=== PATIENT | female | born 1955 | race Caucasian/White ===

== ENCOUNTER 2018-04-05 21:15 | Observation (INO) ==
[2018-04-05 22:10] LABS: Basophils % 0.6 %; Eosinophils # 0.3 K/mcL (0.0-0.6); Eosinophils % 3.8 %; Hematocrit 40.6 % (35.3-44.9); Hemoglobin 13.3 g/dL (11.5-15.4); Immature Granulocytes % 0.4 % (0-4); Lymphocytes # 1.9 K/mcL (0.6-4.6); Lymphocytes % 26.2 %; Mean Corpuscular HGB Conc 32.8 g/dL (31.6-35.5); Mean Corpuscular Hemoglobin 29.1 pg (28.0-33.3); Mean Corpuscular Volume 88.8 fL (83.0-100.0); Mean Platelet Volume 10.1 fL (9.4-12.4); Monocytes # 0.5 K/mcL (0.0-1.3); Monocytes % 7.4 %; Neutrophils # 4.4 K/mcL (1.6-8.9); Platelet Count 249 K/mcL (140-400); Red Blood Count 4.57 M/mcL (3.82-4.97); Red Cell Distribution Width 13.1 % (11.5-14.5); Segmented Neutrophils % 61.6 %
[2018-04-05 22:30] LABS: BUN/Creatinine Ratio 24 (6-26); Blood Urea Nitrogen 24 mg/dL (8-23); Calcium 9.7 mg/dL (8.6-10.3); Carbon Dioxide 25 mEq/L (23-29); Chloride 107 mEq/L (98-107); Glucose 108 mg/dL (70-105); Magnesium 2.2 mg/dL (1.6-2.6); Osmolality,Calculated 295 (280-300); Potassium 3.9 mEq/L (3.5-5.1); Sodium 140 mEq/L (136-145); Troponin I < 0.03 ng/mL (< 0.04); eGFR For Non-African Americans 55 (> 60)
[2018-04-05 22:44] LABS: Thyroid Stimulating Hormone 4.193 mcIU/mL (0.340-5.600)
[2018-04-05] MEDS ORDERED: Isovue-370 500 ML INFUS..BTL IV ONE (22:47)
[2018-04-05] MEDS ORDERED: 0.9 % Sodium Chloride 1,000 ML IVC ONE (22:50)
--- NOTE | 2018-04-06 01:02 | Emergency Department Note ---
Disposition Clinical Impression: Lightheaded, Near syncope, Palpitations Chest pain Qualifiers: Chest pain type: unspecified Qualified Code(s): R07.9 - Chest pain, unspecified Disposition: Admitted As Inpatient Condition: Good General Adult HPI - General Chief complaint: ED Shortness of Breath/Dyspnea Stated complaint: SOB Time Seen by Provider: 04/05/18 21:25 Source: patient, EMS Limitations: no limitations Nursing Notes Reviewed: Yes Vital Signs Reviewed: Yes - History of Present Illness HPI Narrative: Patient with no significant past medical history secondary to not following up with a physician on a regular basis presents to the emergency department for evaluation of palpitations as well as shortness of breath. Patient states that she felt her heart racing proximal point hour prior to arrival. Patient states she is had a previous episode of sinus tachycardia did not find any significant underlying etiology. Patient states that she is feeling much better since her initial symptom onset. The patient states that she did not have any associated chest pain with this. She did not have any nausea or vomiting or diaphoresis. The symptoms were not exertional in nature. At this time the patient is still mildly tachycardic and will undergo further evaluation for both chest pain as well as possible PE. Pain Scale: 0 - Related Data Allergies Allergy/AdvReac Type Severity Reaction Status Date / Time No Known Allergies Allergy Verified 04/05/18 21:19 Review of Systems: CONSTITUTIONAL: No weight loss, fever, chills, weakness or fatigue. HEENT: Eyes: No visual changes. Ears, Nose, Throat: No hearing loss, difficulty talking or unable to swallow. SKIN: No rash or itching. CARDIOVASCULAR: Palpitations without chest pain RESPIRATORY: Shortness of breath GASTROINTESTINAL: No anorexia, nausea, vomiting or diarrhea. No abdominal pain or blood. GENITOURINARY: No burning on urination or hematuria. NEUROLOGICAL: No headache, dizziness, syncope, paralysis, ataxia, numbness or tingling in the extremities. No change in bowel or bladder control. MUSCULOSKELETAL: No muscle pain, back pain, joint pain or stiffness. All systems ED: reviewed and negative except as stated. Past Medical History - Past Medical History Medical history: Reports: no medical history Psychiatric history: Reports: no psych history - Social History Smoking Status: Former smoker Smokeless Tobacco Status: No Alcohol use: Reports: none Drug use: Reports: none Physical Exam General: Well appearing, nontoxic, no acute distress Head: Normocephalic Atraumatic Eyes: PERRL, EOMI ENT: Airway patent, no stridor Neck: supple, no meningismus Chest: Lungs clear to auscultation bilateral Cardiac: Regular rate and rhythm, no murmurs, rubs or gallops Abdomen: soft, nontender, nondistended; no guarding, rebound, or tenderness to percussion Musculoskeletal: Calves symmetric, nontender Skin: No rash, normal skin tone Neuro: Alert and Oriented to person, place, and time; No focal deficit - General Limitations: no limitations General appearance: alert Course - Reevaluation(s) Reevaluation #1: Patient with elevated d-dimer. CTA ordered. Reevaluation #2: CTA was negative. I did discuss the patient the negative workup and the need for further evaluation. She would like to do this as an outpatient. We did discuss her need to ambulate around the emergency department without any difficulties then. She did ambulate around the emergency department and upon reevaluation she states that she had exacerbation of chest pressure. I asked her when that started she says is been coming and going every 20 minutes. At this time she then describes how she was taken to CT. Upon moving her to the CT table she became lightheaded feeling like she might pass out. From this time forward she has been having chest pain in the middle of her chest described as a pressure that lasts for approximately 1-2 minutes and then resolves. This is happened several times during her stay in the emergency department. The fact that it was worse with exertion does make me concerned about possible underlying cardiac etiology. Patient will be admitted for further evaluation. - Consultations Consultation #1: Discussed with hospitalist. Patient accepted for admission. Vital Signs Temperature 98.8 F 04/05/18 21:20 Pulse Rate 104 04/05/18 21:20 Respiratory Rate 17 04/05/18 21:20 Blood Pressure 123/70 04/05/18 21:20 O2 Sat by Pulse Oximetry 99 04/05/18 21:20 Temperature 98.8 F 04/05/18 21:20 Pulse Rate 80 04/06/18 00:44 Respiratory Rate 17 04/06/18 00:44 Blood Pressure 112/69 04/06/18 00:44 O2 Sat by Pulse Oximetry 99 04/06/18 00:44 Oxygen Delivery Oxygen Delivery Room Air Medical Decision Making - Medical Records Medical records reviewed: Yes I reviewed the patient's medical records. - Lab Data Lab results reviewed: Yes I reviewed the patient's lab results. Result diagrams: 04/05/18 21:52 04/05/18 21:52 Lab Results 04/05/18 04/05/18 04/05/18 Range/Units 21:52 21:52 21:52 WBC 7.2 (4.3-11.1) K/mcL RBC 4.57 (3.82-4.97) M/mcL Hgb 13.3 (11.5-15.4) g/dL Hct 40.6 (35.3-44.9) % MCV 88.8 (83.0-100.0) fL MCH 29.1 (28.0-33.3) pg MCHC 32.8 (31.6-35.5) g/dL RDW 13.1 (11.5-14.5) % Plt Count 249 (140-400) K/mcL MPV 10.1 (9.4-12.4) fL Immature Gran % 0.4 (0-4) % Seg Neutrophils % 61.6 % Lymphocytes % 26.2 % Monocytes % 7.4 % Eosinophils % 3.8 % Basophils % 0.6 % Neutrophils # 4.4 (1.6-8.9) K/mcL Lymphocytes # 1.9 (0.6-4.6) K/mcL Monocytes # 0.5 (0.0-1.3) K/mcL Eosinophils # 0.3 (0.0-0.6) K/mcL Basophils # 0.0 (0.0-0.2) K/mcL D-Dimer 1701 H (0-500) ng/mLFEU Sodium 140 (136-145) mEq/L Potassium 3.9 (3.5-5.1) mEq/L Chloride 107 (98-107) mEq/L Carbon Dioxide 25 (23-29) mEq/L BUN 24 H (8-23) mg/dL Creatinine 1.01 (0.60-1.20) mg/dL Est GFR ( Amer) > 60 (> 60) Est GFR (Non-Af Amer) 55 L (> 60) BUN/Creatinine Ratio 24 (6-26) Glucose 108 H (70-105) mg/dL Calculated Osmolality 295 (280-300) Calcium 9.7 (8.6-10.3) mg/dL Magnesium 2.2 (1.6-2.6) mg/dL Troponin I < 0.03 (< 0.04) ng/mL B-Natriuretic Peptide (Less than 100) pg/mL TSH 4.193 (0.340-5.600) mcIU/mL 04/05/18 Range/Units 21:52 WBC (4.3-11.1) K/mcL RBC (3.82-4.97) M/mcL Hgb (11.5-15.4) g/dL Hct (35.3-44.9) % MCV (83.0-100.0) fL MCH (28.0-33.3) pg MCHC (31.6-35.5) g/dL RDW (11.5-14.5) % Plt Count (140-400) K/mcL MPV (9.4-12.4) fL Immature Gran % (0-4) % Seg Neutrophils % % Lymphocytes % % Monocytes % % Eosinophils % % Basophils % % Neutrophils # (1.6-8.9) K/mcL Lymphocytes # (0.6-4.6) K/mcL Monocytes # (0.0-1.3) K/mcL Eosinophils # (0.0-0.6) K/mcL Basophils # (0.0-0.2) K/mcL D-Dimer (0-500) ng/mLFEU Sodium (136-145) mEq/L Potassium (3.5-5.1) mEq/L Chloride (98-107) mEq/L Carbon Dioxide (23-29) mEq/L BUN (8-23) mg/dL Creatinine (0.60-1.20) mg/dL Est GFR ( Amer) (> 60) Est GFR (Non-Af Amer) (> 60) BUN/Creatinine Ratio (6-26) Glucose (70-105) mg/dL Calculated Osmolality (280-300) Calcium (8.6-10.3) mg/dL Magnesium (1.6-2.6) mg/dL Troponin I (< 0.04) ng/mL B-Natriuretic Peptide 23 (Less than 100) pg/mL TSH (0.340-5.600) mcIU/mL - Radiology Data Radiology results reviewed: Yes I reviewed the patient's radiology results. - EKG Data EKG #1 EKG attestation: Yes I reviewed and interpreted this EKG. EKG results narrative: EKG shows sinus tachycardia with heart rate of 100. VA interval 160. QRS 80. QTC 425. Patient has no significant ST elevations or depressions. No specific changes with comparison to previous of 06/28/2001 other than tachycardia.
[2018-04-06] MEDS ORDERED: *HR* Enoxaparin 60 MG/0.6 ML SYRINGE SQ STA (01:19)
[2018-04-06] MEDS ORDERED: Naloxone 0.4 MG/ML INJ IVP PRN (01:57)
--- NOTE | 2018-04-06 02:59 | Internal Med History&Physical ---
Date of Encounter: 04/06/18 Time of Encounter: 01:45 Internal Medicine - H&P: HPI Chief complaint: palpitations, dyspnea Admitted From: Home Plans for Post Hospital Care: Home History of present illness: Ms. Alanis is a 62 year old female without known PMH who presented to the ED with c/o palpitations and dyspnea as she was advised by an urgent care doctor she'd seen last week. Visit to urgent care last week was for pain and swelling after falling on her right knee, the doctor became concerned for DVT after learning the patient had reently been on a very long car trip and he sent her to [facility] to have bilateral LE venous doppler performed. Results of the doppler were negative for venous thrombosis of the RLE and LLE. The urgent care doctor asked that she follow up with him after getting she got the results, which she did two days ago. By that time, her right lower extremity swelling decreased with RICE. She was advised by the urgent care doctor to go to the hospital if she began to experience difficulty breathing and heart racing heart or palpitations--this is what prompted her visit. Just prior to arrival, she reports sitting in her recliner when she suddenly felt "heart fluttering" with accompanying dyspnea for a brief period before resolving on its own. Past Med Surg Social Fam HX - Past Medical History Medical history: no medical history Psychiatric history: no psych history - Social History Smoking Status: Former smoker Smokeless Tobacco Status: No Alcohol use: none Drug use: none - Family History Mother Family Member Ethnicity: Non- Living Status: Age at : 83 Internal Medicine - H&P: Meds 3 Allergy/AdvReac Type Severity Reaction Status Date / Time No Known Allergies Allergy Verified 04/05/18 21:19 All Systems PM: A 10-system review of systems was performed and is negative for pertinent findings except as documented above in the HPI. - Constitutional Constitutional: as per HPI, no chills, no fever(s) - Cardiovascular Cardiovascular ROS IM: as per HPI, dyspnea, palpitations, no chest pain, no diaphoresis, no lightheadedness, no syncope - Respiratory Respiratory: no cough, no dyspnea on exertion, no pain on inspiration - Gastrointestinal Gastrointestinal: no nausea, no vomiting - Musculoskeletal Musculoskeletal ROS IM: as per HPI - Integumentary Integumentary IM: no erythema - Neurological Neurological ROS: no dizziness, no tingling - Constitutional Vitals: Temp Pulse Resp BP Pulse Ox 98.8 F 80 24 112/74 97 04/05/18 21:20 04/06/18 02:11 04/06/18 02:11 04/06/18 02:11 04/06/18 02:11 General appearance: Present: A&O X 3, no acute distress, answers questions appropriately Exam: . - Head Head exam: Present: atraumatic, normocephalic - Eye Eye exam: Present: EOMI, normal appearance, PERRL. Absent: scleral icterus Pupils: Present: PERRL - Neck Neck exam general surgery: Present: supple, trachea midline - Respiratory Respiratory exam: Present: rales (fine and bibasilar). Absent: accessory muscle use, respiratory distress, rhonchi, wheezes, tachypnea - Cardiovascular Cardiovascular exam: Present: RRR, +S1, +S2. Absent: diastolic murmur, gallop, rubs, systolic murmur - GI/Abdominal GI/Abdominal exam: Present: normal bowel sounds, soft. Absent: distended - Extremities Exam Extremities exam: Present: normal inspection (Calf circumferences appear equal) , pedal edema (Right ankle edema, non-pitting), warm, radial pulses palpable and symmetrical. Absent: calf tenderness, cyanotic, joint swelling, mottling - Neurological Exam Neurological exam: Present: alert, CN II-XII intact, oriented X3. Absent: no focal deficits - Psychiatric Psychiatric exam: Present: normal affect, normal mood - Skin Skin exam: Present: intact, normal color, warm. Absent: cyanosis, diaphoretic, erythema Internal Med - H&P Results - Labs CBC & Chem 7: 04/06/18 02:49 04/06/18 02:49 - Assessment and plan (1) Palpitations Current Visit: Yes Status: Acute Assessment and plan: Unclear etiology; consider possibility of precordial catch syndrome? No palpitations or tachycardia since time of her presenting complaint Work up to exclude ACS and PE--currently, these seem unlikely based on results of current testing and imaging Troponin negative x2 EKG shows sinus tachycardia, but no ST elevation or depression to suggest acute ischemic event TSH wnl Echocardiogram in AM Continuous cardiac monitoring--if fail to catch arrhythmia as inpatient, recommend setting up outpatient Holter monitoring (2) Dyspnea Current Visit: Yes Status: Acute Assessment and plan: Unclear etiology; consider possibility of precordial catch syndrome? Has not experienced dyspnea since the episode she presented for CXR and CTA chest in this clinical setting are not suggestive of pleural effusion, pulmonary embolism, PNA, or mass Due to h/o tobacco use, not unlikely for this patient to have developed atelectasis, COPD, or other lung disease that could be w/u as outpatient Breathing comfortably, saturating > 96% on room air See plan for "Palpitations" Qualifiers: Dyspnea type: unspecified Qualified Code(s): R06.00 - Dyspnea, unspecified (3) Swelling of right lower extremity Current Visit: Yes Status: Acute Assessment and plan: BLE doppler performed 1 week ago for concerns of DVT, results were negative Swelling of RLE reportedly improved with small amount of ankle swelling per patient and as seen on exam Right and left calf diameters appear equal, nontender on palpation Repeat BLE venous doppler study in AM (4) Former tobacco use Current Visit: Yes Status: Acute Assessment and plan: Former smoker x15 years 3/4 ppd, quit 3 years ago. However, she currently vapes. (5) Elevated d-dimer Current Visit: Yes Status: Acute Assessment and plan: D-dimer 1701 Current lab and imaging results make PE less likely May be due to undiagnosed cardiovascular disease such as CHF or an intracardiac thrombus Elevation could also be related to diagnosis of sepsis See plans above (6) Near syncope Current Visit: Yes Status: Acute Assessment and plan: Near-syncopal event while at CT scanner, as per ED note Multiple etiologies are possible and we're currently ruling out cardiopulmonary causes Orthostatics this AM (7) Medical non-compliance Current Visit: Yes Status: Acute Assessment and plan: Patient does not have regular visits to a healthcare provider and has no PCP Social work consult placed, recommendations appreciated (8) DVT prophylaxis Current Visit: Yes Status: Acute Assessment and plan: Received lovenox subQ overnight Recommend reassessing need for anticoagulation in AM as more additional studies (see above) result - Time Spent With Patient Total time spent is greater than 50% in coordination of care (as documented) at patient's floor/unit and/or counseling patient:
[2018-04-06 03:04] LABS: Basophils % 0.4 %; Eosinophils # 0.3 K/mcL (0.0-0.6); Eosinophils % 3.5 %; Hematocrit 37.5 % (35.3-44.9); Hemoglobin 12.3 g/dL (11.5-15.4); Immature Granulocytes % 0.4 % (0-4); Lymphocytes # 2.3 K/mcL (0.6-4.6); Lymphocytes % 28.9 %; Mean Corpuscular HGB Conc 32.8 g/dL (31.6-35.5); Mean Corpuscular Volume 88.4 fL (83.0-100.0); Mean Platelet Volume 9.8 fL (9.4-12.4); Monocytes # 0.4 K/mcL (0.0-1.3); Monocytes % 4.4 %; Neutrophils # 4.9 K/mcL (1.6-8.9); Platelet Count 242 K/mcL (140-400); Red Blood Count 4.24 M/mcL (3.82-4.97); Red Cell Distribution Width 13.2 % (11.5-14.5); Segmented Neutrophils % 62.4 %
[2018-04-06 03:23] LABS: Prothrombin Time 11.1 Seconds (9.4-12.1)
[2018-04-06 03:26] LABS: Activated Partial Thrombo Time 35.7 Seconds (26.0-36.0)
[2018-04-06 03:33] LABS: BUN/Creatinine Ratio 28 (6-26); Blood Urea Nitrogen 21 mg/dL (8-23); Calcium 8.9 mg/dL (8.6-10.3); Carbon Dioxide 25 mEq/L (23-29); Chloride 107 mEq/L (98-107); Glucose 108 mg/dL (70-105); Osmolality,Calculated 294 (280-300); Sodium 140 mEq/L (136-145); Troponin I < 0.03 ng/mL (< 0.04); eGFR For Non-African Americans > 60 (> 60)
[2018-04-06 06:00] VITALS: BP 96/57
--- NOTE | 2018-04-06 11:03 | Discharge Summary ---
<Sony Rose Sherry - Last Filed: 04/06/18 16:01> - NOTES TO OUTPATIENT PROVIDER Notes to Outpatient Provider: Ms. Alanis was admitted on 04/06 complaining of palpitations and dyspnea. She was seen a week prior to this admission at urgent care for pain and swelling near her right knee after a long car trip (+8 hours) . Bilateral LE dopplers were negative for DVT. This episode of dyspnea and "heart fluttering" started at home while sitting in a recliner. CXR and CTA chest were negative for any acute abnormalities. However D-dimer was elevated at 1701. Currently awaiting results of echo at time of discharge. Orders not resulted at time of discharge: Pending orders 04/06/18 04:15 EV echocardiogram Routine Date of Encounter: 04/06/18 Time of Encounter: 11:03 - Discharge Diagnosis (1) Palpitations Priority: Primary Status: Acute Assessment and Plan: Unclear etiology No palpitations or tachycardia since time of her presenting complaint Troponin negative x3 EKG from ED showed sinus tachycardia, but no ST elevation or depression to suggest acute ischemic event TSH wnl Echo results PENDING Can consider setting up outpatient Holter monitoring May also be related to anxiety associated with right leg pain and subsequent medical workup. (2) Dyspnea Priority: Primary Status: Acute Assessment and Plan: Has not experienced dyspnea since the presenting episode which resolved on its own CXR and CTA chest revealed no acute abnormalities Breathing comfortably, saturating > 96% on room air As above, may be related to anxiety with right leg pain Qualifiers: Dyspnea type: unspecified Qualified Code(s): R06.00 - Dyspnea, unspecified (3) Swelling of right lower extremity Priority: Secondary Status: Acute Assessment and Plan: BLE doppler from last week were negative Right and left calf diameters appear equal, nontender on palpation. No edema. Some pain to palpation of right knee. (4) Former tobacco use Priority: Secondary Status: Acute Assessment and Plan: Former smoker x15 years 3/4 ppd, quit 3 years ago. Currently vapes. (5) Elevated d-dimer Priority: Secondary Status: Acute Assessment and Plan: D-dimer 1701 Labs, imaging, and clinical status make PE less likely May be due to undiagnosed cardiovascular disease such as CHF or an intracardiac thrombus Elevation could also be related to diagnosis of sepsis See plans above Hospital course: Ms. Alanis is a 62 year old female Discharge discussed with: patient, family, nurse - Time Spent with Patient Total time spent providing and/or coordinating discharge services: - Discharge Medications Allergies/Adverse Reactions: 3 Allergy/AdvReac Type Severity Reaction Status Date / Time No Known Allergies Allergy Verified 04/05/18 21:19 Date of admission: 04/06/18 01:35 Primary care physician: PCP NONE Consults: 04/06/18 04:26 Consult to Bottle Booth Attendant [CONS] Routine Reason for SW Consult: medical non-compliance, no PCP Discharging clinician: Sony Rose - Constitutional Vitals: Temp Pulse Resp BP Pulse Ox 97.9 F 74 16 96/57 97 04/06/18 03:00 04/06/18 07:00 04/06/18 07:00 04/06/18 05:58 04/06/18 07:00 General appearance: Present: A&O X 3, no acute distress, answers questions appropriately Exam: Constitutional: well nourished, well developed female. no acute distress. pleasant Head: normocephalic and atraumatic Eyes: PERRL, EOMI, sclera anicteric Neck: supple, trachea midline, no lymphadenopathy Lungs: CTA bialterally. Non-labored breathing. No wheezes, rales, or rhonchi. Heart: RRR +S1 +S2. no murmurs, clicks, or rubs appreciated. GI: abdomen, soft, non-tender, non-distended. normoactive bowel sounds Extremities: radial pulses palpable and symmetrical. no cyanosis. no edema or swelling. Pain to palpation of the right calf. Neuro: A&Ox3. No focal deficits. No speech difficulty or abnormality. Skin: warm, dry, intact. - Patient Status Disposition: Home, Self-Care Condition: Good Overall status at discharge: patient is back to baseline - Discharge Instructions Instructions: Chest Pain (GEN), Palpitations (GEN) Follow Up With: Hue Fu DO [Resident] - Sony Rose [Resident] - Forms: ED Satisfaction Letter - Diet and Activity Activity: increase activity as tolerated, resume usual activities as tolerated Diet: regular diet <Will Berry - Last Filed: 04/06/18 19:08> Date of Encounter: 04/06/18 - Discharge Diagnosis (1) Palpitations Status: Acute (2) Dyspnea Status: Acute Qualifiers: Dyspnea type: unspecified Qualified Code(s): R06.00 - Dyspnea, unspecified (3) Swelling of right lower extremity Status: Acute (4) Former tobacco use Status: Acute (5) Elevated d-dimer Status: Acute Hospital course: Ms. Alanis is a 62 year old female - Time Spent with Patient Total time spent providing and/or coordinating discharge services: Date of admission: 04/06/18 01:35 Primary care physician: PCP NONE Consults: 04/06/18 04:26 Consult to Bottle Booth Attendant [CONS] Routine Reason for SW Consult: medical non-compliance, no PCP - Constitutional Vitals: Temp Pulse Resp BP Pulse Ox 97.9 F 74 16 96/57 97 04/06/18 03:00 04/06/18 07:00 04/06/18 07:00 04/06/18 05:58 04/06/18 07:00 - Attending Attestation I examined this patient and my medical decision-making was reviewed with the Resident Physician Dr. Rose. I agree with the documented findings, disposition and treatment plan as described except to the extent set forth below. Ms. Alanis is a 62 year old female without known PMH who presented to the ED with c/o palpitations and dyspnea as she was advised by an urgent care doctor she'd seen last week. Pt denied any CP. She did not have any more palpitations. Her CTA came back negative for PE. Her serial troponin were negative. Her palpitations might be most likely due to anxiety. Educated the pt about it. Recommend to f/u with PCP about her 2 D Echo results. Will d/c her home today Gen: A, A, O x3 Chest: Diminished BS b/l Heart: S1S2+ RRR
--- NOTE | 2018-04-09 09:38 | Electrocardiograph Report ---
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
== END 2018-04-06 14:47 | disposition home or self-care (01) ==
LOC: EMEROOARM 21:15 → 2NENU 21:15
PROVIDERS: ADMIT Pediatrics; ATTEND Pediatrics

== ENCOUNTER 2020-10-17 05:19 | Inpatient (IN) ==
[2020-10-17] MEDS ORDERED: Dexamethasone Sodium Phos/PF 10 MG/ML VIAL IVP ONE (05:38)
[2020-10-17 05:54] LABS: Basophils % 0.2 %; Hematocrit 40.6 % (35.3-44.9); Hemoglobin 13.4 g/dL (11.5-15.4); Immature Granulocytes % 0.4 % (0-4); Lymphocytes # 0.8 K/mcL (0.6-4.6); Mean Corpuscular Hemoglobin 28.5 pg (28.0-33.3); Mean Corpuscular Volume 86.2 fL (83.0-100.0); Mean Platelet Volume 9.7 fL (9.4-12.4); Monocytes # 0.2 K/mcL (0.0-1.3); Monocytes % 3.9 %; Neutrophils # 3.7 K/mcL (1.6-8.9); Platelet Count 159 K/mcL (140-400); Red Blood Count 4.71 M/mcL (3.82-4.97); Red Cell Distribution Width 13.4 % (11.5-14.5); Segmented Neutrophils % 78.5 %; White Blood Count 4.7 K/mcL (4.3-11.1)
[2020-10-17] MEDS ORDERED: Acetaminophen 325 MG TABLET PO ONE (06:09)
[2020-10-17 06:15] LABS: BUN/Creatinine Ratio 19 (6-26); Blood Urea Nitrogen 14 mg/dL (8-23); Calcium 8.8 mg/dL (8.6-10.3); Carbon Dioxide 22 mEq/L (23-29); Chloride 101 mEq/L (98-107); Glucose 115 mg/dL (70-105); Osmolality,Calculated 279 (280-300); Potassium 3.3 mEq/L (3.5-5.1); Sodium 134 mEq/L (136-145); Troponin I < 0.03 ng/mL (< 0.04); eGFR For African Americans > 60 (> 60); eGFR For Non-African Americans > 60 (> 60)
[2020-10-17] MEDS ORDERED: Acetaminophen 325 MG TABLET PO PRN (10:24)
[2020-10-17] MEDS ORDERED: Ondansetron 4 MG/2 ML VIAL IVP PRN (10:24)
[2020-10-17] MEDS ORDERED: Melatonin 3 MG TABLET PO PRN (10:24)
[2020-10-18 04:43] LABS: Hematocrit 39.5 % (35.3-44.9); Hemoglobin 12.9 g/dL (11.5-15.4); Mean Corpuscular HGB Conc 32.7 g/dL (31.6-35.5); Mean Corpuscular Hemoglobin 28.3 pg (28.0-33.3); Mean Corpuscular Volume 86.6 fL (83.0-100.0); Mean Platelet Volume 9.7 fL (9.4-12.4); Platelet Count 177 K/mcL (140-400); Red Blood Count 4.56 M/mcL (3.82-4.97); Red Cell Distribution Width 13.5 % (11.5-14.5); White Blood Count 5.3 K/mcL (4.3-11.1)
[2020-10-18 05:00] LABS: Albumin 3.8 g/dL (3.5-5.7); Albumin/Globulin Ratio 1.3 (1.1-2.2); Bilirubin,Direct 0.2 mg/dL (0.0-0.2); Bilirubin,Indirect 0.4 mg/dL (0.0-1.0); Bilirubin,Total 0.6 mg/dL (0.3-1.0); Total Protein 6.8 g/dL (6.4-8.9)
[2020-10-18 05:01] LABS: BUN/Creatinine Ratio 32 (6-26); Blood Urea Nitrogen 22 mg/dL (8-23); Calcium 9.1 mg/dL (8.6-10.3); Carbon Dioxide 22 mEq/L (23-29); Chloride 107 mEq/L (98-107); Glucose 118 mg/dL (70-105); Magnesium 2.3 mg/dL (1.6-2.6); Osmolality,Calculated 290 (280-300); Potassium 4.1 mEq/L (3.5-5.1); Sodium 138 mEq/L (136-145); eGFR For African Americans > 60 (> 60); eGFR For Non-African Americans > 60 (> 60)
[2020-10-18] MEDS: *HR* Enoxaparin 40 MG/0.4 ML SYRINGE SQ SCH (05:10)
[2020-10-18] MEDS: Dexamethasone Sodium Phos/PF 10 MG/ML VIAL IVP SCH (09:10)
[2020-10-18] MEDS: levoFLOXacin 750 MG TABLET PO SCH (15:42)
[2020-10-19] MEDS: *HR* Enoxaparin 40 MG/0.4 ML SYRINGE SQ SCH (05:44)
[2020-10-19] MEDS: levoFLOXacin 750 MG TABLET PO SCH (08:44)
[2020-10-19] MEDS: Dexamethasone Sodium Phos/PF 10 MG/ML VIAL IVP SCH (08:44)
[2020-10-19] MEDS: Fluticasone Propionate Nasal 50 MCG/SPRAY BOTTLE NS SCH (12:46)
[2020-10-19] MEDS: Budesonide/Formoterol 160/4.5 1 PUFF INH IH SCH (22:23)
[2020-10-20] MEDS: *HR* Enoxaparin 40 MG/0.4 ML SYRINGE SQ SCH (05:27)
[2020-10-20] MEDS: Budesonide/Formoterol 160/4.5 1 PUFF INH IH SCH (08:10)
[2020-10-20] MEDS: Dexamethasone Sodium Phos/PF 10 MG/ML VIAL IVP SCH (08:23)
[2020-10-20] MEDS: levoFLOXacin 750 MG TABLET PO SCH (08:25)
[2020-10-20] MEDS: Fluticasone Propionate Nasal 50 MCG/SPRAY BOTTLE NS SCH (08:32)
[2020-10-20] MEDS ORDERED: Loratadine 10 MG TABLET PO SCH (09:00)
[2020-10-20 11:10] VITALS: BP 119/76
== END 2020-10-20 17:56 | disposition home or self-care (01) | DRG 871 ==
LOC: EMEROOARM 05:19 → 3BNU 05:19 → SUATTDRO 11:49
PROVIDERS: ADMIT Internal Medicine; ATTEND Pharmacist